=== PATIENT | female | born 1945 | race Caucasian/White ===

== ENCOUNTER 2017-10-25 23:39 | Emergency (ER) | payer OTHER ==
[2017-10-25 23:43] VITALS: BP 146/76; PULSE 99; TEMP 98.2; BMI 27.4
--- NOTE | 2017-10-26 00:43 | PDOC ---
History of Present Illness - General Chief Complaint: Chest Pain Stated Complaint: CHEST PAIN Time Seen by Provider: 10/25/17 23:50 History Source: Patient Exam Limitations: No Limitations - History of Present Illness Initial Comments: 10/26/17 00:38 CHIEF COMPLAINT: left chest pain HISTORY OF PRESENT ILLNESS: This is 72-year-old woman with past medical history of hyperlipidemia who presents emergency Department with left-sided chest pain status post trip and fall on 10/25. Patient states when she fell she landed on carpeted wooden floor striking her chest on the ground. Patient states she felt fine immediately after the injury but as time progressed she developed chest pain which worsens with deep inspiration. Patient also notes that when she palpates her rib she has increased pain. She denies any fevers, chills, shortness of breath, nausea, vomiting, diaphoresis. No recent travel or sick contacts. PAST MEDICAL HISTORY: HLD FAMILY HISTORY: Denies SURGICAL HISTORY: Denies ALLERGIES: No known drug allergies REVIEW OF SYSTEMS General/Constitutional: Denies fever or chills. Denies weakness, weight change. HEENT: Denies change in vision. Denies ear pain or discharge. Denies sore throat. Cardiovascular: Left sided chest pain. No shortness of breath. Respiratory: Denies cough, wheezing, or hemoptysis. Gastrointestinal: Denies nausea, vomiting, diarrhea or constipation. Denies rectal bleeding. Genitourinary: Denies dysuria, frequency, or change in urination. Musculoskeletal: Denies joint or muscle swelling or pain. Denies neck or back pain. Skin and breasts: Denies rash or easy bruising. Neurologic: Denies headache, vertigo, loss of consciousness, or loss of sensation. Psychiatric: Denies depression or anxiety. Endocrine: Denies increased thirst. Denies abnormal weight change. Hematologic/Lymphatic: Denies anemia, easy bleeding, or history of blood clots. Allergic/Immunologic: Denies hives or skin allergy. Denies latex allergy. PHYSICAL EXAM General Appearance: Well-appearing, appropriately dressed. No apparent distress , no intoxication. HEENT: EOMI, PERRLA, normal ENT inspection, normal voice, TMs normal, pharynx normal. No conjunctival pallor. No photophobia, scleral icterus. Neck: Supple. Trachea midline. No tenderness, rigidity, carotid bruit, stridor , lymphadenopathy, or thyromegaly. Respiratory/Chest: Lungs CTAB. No shortness of breath, respiratory distress, accessory muscle use. No crackles, rales, rhonchi, stridor, wheezing, dullness. Chest tender to Left anterior 8th rib at midclavicular line. Cardiovascular: RRR. S1, S2. No JVD, murmur, bradycardia, tachycardia. Vascular Pulses: Dorsalis-Pedis (R): 2+, Dorsalis-Pedis (L): 2+ Gastrointestinal/Abdominal: Normal bowel sounds. Abdomen soft, non-distended. No tenderness or rebound tenderness. No organomegaly, pulsatile mass, guarding , hernia, hepatomegaly, splenomegaly. Lymphatic: No adenopathy, tenderness. Musculoskeletal/Extremities: Normal inspection. FROM of all extremities, normal capillary refill. Pelvis Stable. No CVA tenderness. No tenderness to extremities, pedal edema, swelling, erythema or deformity. Integumentary: Appropriate color, dry, warm. No cyanosis, erythema, jaundice or rash Neurologic: remotely operated vehicle II-XII intact. Fully oriented, alert. Appropriate mood/affect. Motor strength 5/5. No appreciable EOM palsy, facial droop or sensory deficit. Past History - Past Medical History Allergies/Adverse Reactions: Allergies Allergy/AdvReac Type Severity Reaction Status Date / Time codeine Allergy Intermediate heart Verified 10/25/17 23:43 palpitations, hives Home Medications: Ambulatory Orders Pravastatin Sodium [Pravachol (Nf)] 20 mg PO DAILY 10/26/17 COPD: No - Surgical History Abdominal Surgery: Yes Cholecystectomy: Yes - Suicide/Smoking/Psychosocial Hx Smoking History: Never smoked Hx Alcohol Use: No Drug/Substance Use Hx: No Substance Use Type: None *Physical Exam - Vital Signs Last Vital Signs Temp Pulse Resp BP Pulse Ox 98.2 F 99 H 18 146/76 94 L 10/25/17 23:40 10/25/17 23:40 10/25/17 23:40 10/25/17 23:40 10/25/17 23:40 ED Treatment Course - LABORATORY CBC & Chemistry Diagram: 10/26/17 00:13 10/26/17 00:13 - ADDITIONAL ORDERS Additional order review: Laboratory Results 10/26/17 10/26/17 02:15 00:13 Sodium 140 Potassium 4.2 Chloride 105 Carbon Dioxide 29 Anion Gap 6 L BUN 21 H Creatinine 0.9 Creat Clearance w eGFR > 60 Random Glucose 138 H Calcium 8.7 Magnesium 1.8 Total Bilirubin 0.3 AST 22 ALT 23 Alkaline Phosphatase 134 H Creatine Kinase 70 Troponin I < 0.02 Total Protein 7.2 Albumin 3.6 Urine Color Straw Urine Appearance Clear Urine pH 6.0 Ur Specific Holcomb 1.014 Urine Protein Negative Urine Glucose (UA) Negative Urine Ketones Negative Urine Blood Negative Urine Nitrite Negative Urine Bilirubin Negative Urine Urobilinogen Negative Ur Leukocyte Esterase 2+ H Urine WBC (Auto) 14 Urine RBC (Auto) <1 Ur Epithelial Cells Rare Urine Mucus Rare 10/26/17 00:13 RBC 4.44 MCV 93.0 MCHC 34.0 RDW 13.1 MPV 10.5 Neutrophils % 67.6 Lymphocytes % 21.9 D Monocytes % 7.6 Eosinophils % 2.3 Basophils % 0.6 - RADIOLOGY Radiology Studies Ordered: Category Date Time Status CHEST PA & LAT [RAD] Stat Radiology 10/26/17 00:12 Taken Medical Decision Making - Medical Decision Making 10/26/17 00:43 A/P: 72-year-old female with history of hyperlipidemia with left sided chest pain status post trip and fall Lungs clear to auscultation bilaterally RRR. S1 and S2 present. No murmurs, rub or gallop noted. Point tenderness to left anterior eighth rib at the midclavicular line Pain worsens with deep inspiration Abdomen soft nontender nondistended PERC score-0 DDx: ACS, pericarditis, cardiac contusion, pericardial effusion, fractured rib, pulmonary contusion, costochondritis EKG, labs, urine, chest x-ray 10/26/17 02:26 EKG is interpreted by Dr. Leos and reviewed by me: Sinus rhythm with rate of 95. Normal axis. No T-wave changes noted. Chest x-rays read by me: Trachea midline. Cardiac silhouette is within normal limits. No focal consolidations or infiltrates noted visualized osseous structures are intact. Laboratory testing notable for urinalysis with 2+ leuk esterase and 14 wbc's. In absence of urinary symptoms, I will defer treatment. Troponin of less than 0.02. We'll discharge the patient home to f/u with PMD. *DC/Admit/Observation/Transfer Diagnosis at time of Disposition: Atypical chest pain - Discharge Dispostion Disposition: HOME Condition at time of disposition: Stable Decision to Admit order: No - Referrals Referrals: Erum Mckeon [Primary Care Provider] - - Patient Instructions Printed Discharge Instructions: DI for Atypical Chest Pain Additional Instructions: Any evaluation you receive in the emergency department is incomplete. Make an appointment with your primary doctor for continued evaluation. Return to emergency department for chest pain, shortness of breath, nausea, vomiting, sweating, dizziness or any other concerns. Thank you very much for choosing us to provide your emergent health care needs. - Post Discharge Activity Forms/Work/School Notes: Back to Work
[2017-10-26 00:53] LABS: BASO % 0.6 % (0-2.0); EOS % 2.3 % (0-4.5); HEMATOCRIT 41.3 % (32.4-45.2); HEMOGLOBIN 14.1 GM/dL (10.7-15.3); LYMPH % 21.9 % (8-40); MCH 31.6 pg (25.7-33.7); MEAN PLT VOLUME 10.5 fl (7.5-11.1); MONO % 7.6 % (3.8-10.2); NEUT % 67.6 % (42.8-82.8); PLATELET COUNT 206 K/MM3 (134-434); RBC 4.44 M/mm3 (3.60-5.2); RDW 13.1 % (11.6-15.6); WHITE BLOOD COUNT 9.2 K/mm3 (4.0-10.0)
[2017-10-26 01:00] LABS: ALBUMIN 3.6 g/dl (3.4-5.0); ANION GAP 6 (8-16); BILIRUBIN,TOTAL 0.3 mg/dL (0.2-1.0); BLOOD UREA NITROGEN 21 mg/dL (7-18); CALCIUM 8.7 mg/dL (8.5-10.1); CHLORIDE 105 mmol/L (98-107); CO2 29 mmol/L (21-32); CREATININE 0.9 mg/dL (0.55-1.02); GLUCOSE,RANDOM 138 mg/dL (74-106); MAGNESIUM 1.8 mg/dL (1.8-2.4); POTASSIUM 4.2 mmol/L (3.5-5.1); SGOT/AST 22 U/L (15-37); SGPT/ALT 23 U/L (12-78); SODIUM 140 mmol/L (136-145); TOT PROT 7.2 g/dl (6.4-8.2)
[2017-10-26 01:02] LABS: ALK PHOS 134 U/L (45-117)
--- NOTE | 2017-10-26 01:59 | PDOC ---
*Physical Exam - Vital Signs Last Vital Signs Temp Pulse Resp BP Pulse Ox 98.2 F 99 H 18 146/76 94 L 10/25/17 23:40 10/25/17 23:40 10/25/17 23:40 10/25/17 23:40 10/25/17 23:40 ED Treatment Course - LABORATORY CBC & Chemistry Diagram: 10/26/17 00:13 10/26/17 00:13 - ADDITIONAL ORDERS Additional order review: Laboratory Results 10/26/17 00:13 Sodium 140 Potassium 4.2 Chloride 105 Carbon Dioxide 29 Anion Gap 6 L BUN 21 H Creatinine 0.9 Creat Clearance w eGFR > 60 Random Glucose 138 H Calcium 8.7 Magnesium 1.8 Total Bilirubin 0.3 AST 22 ALT 23 Alkaline Phosphatase 134 H Creatine Kinase 70 Troponin I < 0.02 Total Protein 7.2 Albumin 3.6 10/26/17 00:13 RBC 4.44 MCV 93.0 MCHC 34.0 RDW 13.1 MPV 10.5 Neutrophils % 67.6 Lymphocytes % 21.9 D Monocytes % 7.6 Eosinophils % 2.3 Basophils % 0.6 Medical Decision Making - Medical Decision Making 10/26/17 01:59 agree with care from MIKI Guzman *DC/Admit/Observation/Transfer Diagnosis at time of Disposition: Atypical chest pain - Discharge Dispostion Disposition: HOME Condition at time of disposition: Stable - Prescriptions Prescriptions: Spirometers and Accessories [Mistassist] 1 each MC Q1H #1 each - Referrals Referrals: Erum Mckeon [Primary Care Provider] - - Patient Instructions Printed Discharge Instructions: DI for Atypical Chest Pain Additional Instructions: Any evaluation you receive in the emergency department is incomplete. Make an appointment with your primary doctor for continued evaluation. Return to emergency department for chest pain, shortness of breath, nausea, vomiting, sweating, dizziness or any other concerns. Thank you very much for choosing us to provide your emergent health care needs. - Post Discharge Activity Forms/Work/School Notes: Back to Work
[2017-10-26 02:18] LABS: URINE APPEARANCE CLEAR; URINE BILIRUBIN NEGATIVE (<2.0 mg/dL); URINE COLOR STRAW; URINE GLUCOSE (UA) NEGATIVE (NEGATIVE); URINE KETONE NEGATIVE (NEGATIVE); URINE NITRITE NEGATIVE (NEGATIVE); URINE PROTEIN NEGATIVE (NEGATIVE); URINE UROBILINOGEN NEGATIVE mg/dL (0.2-1.0)
[2017-10-26 02:20] LABS: URINE LEUK ESTERASE 2+ (NEGATIVE)
[2017-10-26 02:21] LABS: EPI CELLS RARE /HPF (FEW); URINE MUCUS RARE
[2017-10-26] MEDS ORDERED: KETOROLAC TROMETHAMINE 30 MG/1 ML VIAL IVPUSH ONE (02:26)
[2017-10-26] MEDS ORDERED: KETOROLAC TROMETHAMINE 30 MG/1 ML VIAL ONE (02:29)
--- NOTE | 2017-10-26 09:14 | PDOC ---
Patient Follow-up (Call Back) - Post ED Follow - Up Condition at time of discharge: Stable Disposition at time of original discharge: HOME Reason for Call Back: Radiology (Phone call recieved from Dr. Tomlin regarding increased intersitial markings in the L side. I suspect this is d.t the trauma of falling and pain with inspiraiton. Pt. made aware of results. Sent inscentinve spirometer to pt pharmacy and told her to f/u with her PCP for repeat CXR.)
--- NOTE | 2017-10-26 14:29 | EKG ---
Test Reason : Blood Pressure : / mmHG Vent. Rate : 095 BPM Atrial Rate : 095 BPM P-R Int : 174 ms QRS Dur : 086 ms QT Int : 358 ms P-R-T Axes : 023 026 029 degrees QTc Int : 449 ms POOR DATA QUALITY, INTERPRETATION MAY BE ADVERSELY AFFECTED NORMAL SINUS RHYTHM NORMAL ECG WHEN COMPARED WITH ECG OF 12-AUG-2013 17:39, VENT. RATE HAS INCREASED BY 33 BPM NONSPECIFIC T WAVE ABNORMALITY NOW EVIDENT IN INFERIOR LEADS T WAVE AMPLITUDE HAS DECREASED IN LATERAL LEADS Confirmed by NORA HEADLEY MD ([id number]) on 10/26/2017 2:29:10 PM Referred By: Confirmed By:NORA HEADLEY MD
== END 2017-10-26 02:38 | disposition home or self-care (01) ==
LOC: JER 23:39
PROC: 3E0333Z Introduction of Anti-inflammatory into Peripheral Vein, Percutaneous Approach (ICD-10-PCS; principal; 2017-10-25)
DX: R07.89 Other chest pain (principal); W18.39XA Other fall on same level, initial encounter; Y93.01 Activity, walking, marching and hiking; Y92.018 Other place in single-family (private) house as the place of occurrence of the external cause; Y99.8 Other external cause status; E78.5 Hyperlipidemia, unspecified; Z88.8 Allergy status to other drugs, medicaments and biological substances
CPT/HCPCS: 36415; 71046-TC-FY; 80053; 81003; 81015; 82550; 83735; 84484; 85025; 93005; 93010; 99282-25

== ENCOUNTER 2018-01-15 07:34 | Inpatient (IN) | payer OTHER ==
--- NOTE | 2018-01-15 07:51 | PDOC ---
History of Present Illness - General Stated Complaint: FALL Time Seen by Provider: 01/15/18 07:50 - History of Present Illness Initial Comments: 72yo with previous R. knee surgery presenting after fall. Patient reports she was walking down the stairs around 6:30am when she missed the last step and fell on her left hip. She remembers the entire episode and denies loss of consciousness, nausea, or vomiting. Patient did not hit her head and denies neck tenderness or dental injury. She reports 8/10 pain in her hip when she is still and 10/10 pain when she moves. She has not been able to ambulate or bear any weight on her left leg since the fall. No fever, chills, chest pain, or shortness of breath. Past History - Past Medical History Allergies/Adverse Reactions: Allergies Allergy/AdvReac Type Severity Reaction Status Date / Time codeine Allergy Intermediate heart Verified 10/25/17 23:43 palpitations, hives Home Medications: Ambulatory Orders Pravastatin Sodium [Pravachol (Nf)] 20 mg PO DAILY 10/26/17 COPD: No - Surgical History Abdominal Surgery: Yes Cholecystectomy: Yes - Suicide/Smoking/Psychosocial Hx Smoking History: Never smoked Hx Alcohol Use: No Drug/Substance Use Hx: No Substance Use Type: None Review of Systems - Review of Systems Comments:: Constitutional: no fever, no chills HEENT: no throat pain, no dysphagia Cardiovascular: no chest pain, no palpitations Respiratory: no cough, no shortness of breath Gastrointestinal: no abdominal pain, no nausea, no vomiting Genitourinary: no dysuria, no frequency Musculoskeletal: no myalgia, +L. hip pain Skin: no rash, no itching Neurologic: no headache, no LOC *Physical Exam - Physical Exam Comments: General: Awake, alert, and fully oriented Head: no signs of trauma Eyes: EOMI ENT: Moist mucus membranes Neck: Normal ROM, supple, no midline tenderness Lungs: Lungs clear, Normal breath sounds Cardio: Regular rhythm, S1 and S2 present Abdomen: Soft, nontender. No guarding, no rebound, no masses Extremities: L. leg is internally rotated and shortened, no overlying wound or lesion; 2+ Distal pulses present in all four extremities SKIN: Warm, Dry, normal turgor Neurologic: Cranial nerves II through XII grossly intact. Normal speech ED Treatment Course - LABORATORY CBC & Chemistry Diagram: 01/15/18 08:20 01/15/18 08:20 Medical Decision Making - Medical Decision Making 72yo with previous R. knee surgery presenting after fall. -Imaging: Intertrochanteric fracture with avulsion of the lesser trochanter -Pre-surgical workup -4mg morphine -Dr. Zheng discussed case with Dr. Herring who accepted patient for admission -Discussed case with Dr. Castaneda, orthopedics 01/15/18 10:53 *DC/Admit/Observation/Transfer Diagnosis at time of Disposition: Hip fracture Qualifiers: Encounter type: initial encounter Fracture type: closed Laterality: left Qualified Code(s): S72.002A - Fracture of unspecified part of neck of left femur , initial encounter for closed fracture - Discharge Dispostion Condition at time of disposition: Guarded Decision to Admit order: Yes - Referrals Referrals: Erum Mckeon [Primary Care Provider] - - Patient Instructions - Post Discharge Activity
[2018-01-15] MEDS ORDERED: morphine CARPU-JECT 4 MG/1 ML DISP.SYRIN IVPUSH ONE ×2 (08:08→11:32)
[2018-01-15] MEDS ORDERED: morphine SULFATE 4 MG/ML VIAL ONE ×2 (08:23→11:46)
[2018-01-15 08:42] LABS: BASO % 0.4 % (0-2.0); EOS % 0.7 % (0-4.5); HEMATOCRIT 41.6 % (32.4-45.2); HEMOGLOBIN 13.8 GM/dL (10.7-15.3); LYMPH % 14.4 % (8-40); MCH 30.8 pg (25.7-33.7); MCHC 33.3 g/dl (32.0-36.0); MEAN CELL VOLUME 92.6 fl (80-96); MONO % 6.7 % (3.8-10.2); NEUT % 77.8 % (42.8-82.8); PLATELET COUNT 237 K/MM3 (134-434); RBC 4.49 M/mm3 (3.60-5.2); RDW 13.1 % (11.6-15.6); WHITE BLOOD COUNT 10.3 K/mm3 (4.0-10.0)
[2018-01-15 08:57] LABS: PROTHROMBIN TIME (PATIENT) 11.8 SEC (9.7-13.0)
--- NOTE | 2018-01-15 09:02 | PDOC ---
Attending Attestation - Resident Resident Name: Carlee Lugo - ED Attending Attestation I have performed the following: I have examined & evaluated the patient, The case was reviewed & discussed with the resident, I agree w/resident's findings & plan, Exceptions are as noted - HPI HPI: 01/15/18 08:56 72 yo F with no pmhx here with c/o fall, now left hip pain. missed left step, fell down, denies head trauma no loc. c/o left hip pain. severe. worse with movement. unable to walk since incident. happened at 6 : 30 am. no other comlaints of knee or ankle pain. h/o prior knee surgery on right at [facility] many years ago. - Physicial Exam PE: 01/15/18 09:02 head atrauma awake alert lungs clear bilaterally heart rrr no mrg abd soft nt nd. ext wwp. left hip ttp. decr rom secondary to pain. knee nt. ankle foot/ nt . 2 + dp/ pt bilaterally. left lower ext shortened ext rotated. GCS 15. nuero alert oriented x 3. - Medical Decision Making 01/15/18 09:08 differential hip fracture/ dislocation. plan labs xray ekg sonam admit 01/15/18 10:40 pt with intertrochanteric fracture, with avulsion lesser trochanter. pcp does not admit here. will d/w dr romero, consult [place] . pain controlled with morphine. Heart Score/ECG Review #1 General ECG Interpretation: Sinus Rhythm, Normal Rate, Normal Intervals, No acute ischemic changes (TWI III, flat AVF)
[2018-01-15 09:26] LABS: ALBUMIN 3.5 g/dl (3.4-5.0); ALK PHOS 122 U/L (45-117); ANION GAP 5 MMOL/L (8-16); BILIRUBIN,TOTAL 0.5 mg/dL (0.2-1); BLOOD UREA NITROGEN 22 mg/dL (7-18); CALCIUM 8.9 mg/dL (8.5-10.1); CHLORIDE 108 mmol/L (98-107); CO2 29 mmol/L (21-32); CREATININE 0.7 mg/dL (0.55-1.3); GLUCOSE,RANDOM 120 mg/dL (74-106); POTASSIUM 3.7 mmol/L (3.5-5.1); SGOT/AST 17 U/L (15-37); SGPT/ALT 18 U/L (13-61); SODIUM 143 mmol/L (136-145)
--- NOTE | 2018-01-15 10:14 | EKG ---
Test Reason : Blood Pressure : / mmHG Vent. Rate : 069 BPM Atrial Rate : 069 BPM P-R Int : 184 ms QRS Dur : 094 ms QT Int : 430 ms P-R-T Axes : 032 006 002 degrees QTc Int : 460 ms NORMAL SINUS RHYTHM NORMAL ECG WHEN COMPARED WITH ECG OF 25-OCT-2017 23:55, VENT. RATE HAS DECREASED Confirmed by ASHOK LEMUS MD ([id number]) on 01/15/2018 10:14:34 AM Referred By: Confirmed By:ASHOK LEMUS MD
--- NOTE | 2018-01-15 12:34 | CON.CARD ---
Consult Consult Specialty:: Cardiology Referred by:: Jadiel Herring MD Reason for Consultation:: Pre-operative cardiovascular evaluation - History of Present Illness Chief Complaint: s/p fall, left hip pain History of Present Illness: 72 yo with h/o hyperlipidemia Rt TKR 2016 at [facility] with unremarkable pre- procedure CV testing at that time presented after mechanical fall. Patient reports she was walking down the stairs around 6:30am when she missed the last step and fell on her left hip. She remembers the entire episode and denies loss of consciousness, near syncope, chest pain, dyspnea, palpitations, head trauma, neck tenderness or dental injury. She reports 8/10 pain in her hip when she is still and 10/10 pain when she moves. She has not been able to ambulate or bear any weight on her left leg since the fall. She denies exertional sxs, orthopnea , PND, LE edema or change in exercise capacity. - History Source History Provided By: Patient Limitations to Obtaining History: No Limitations - Alcohol/Substance Use Hx Alcohol Use: No - Smoking History Smoking history: Never smoked Home Medications - Allergies Allergies/Adverse Reactions: Allergies Allergy/AdvReac Type Severity Reaction Status Date / Time codeine Allergy Intermediate heart Verified 10/25/17 23:43 palpitations, hives - Home Medications Home Medications: Ambulatory Orders Pravastatin Sodium [Pravachol (Nf)] 20 mg PO DAILY 10/26/17 Family Disease History - Family Disease History Family Disease History: Heart Disease: Father (in 70s), Mother (in 70s) Review of Systems - Review of Systems Constitutional: reports: No Symptoms Eyes: reports: No Symptoms HENT: reports: No Symptoms Neck: reports: No Symptoms Cardiovascular: reports: No Symptoms Respiratory: reports: No Symptoms Gastrointestinal: reports: No Symptoms Genitourinary: reports: No Symptoms Musculoskeletal: reports: Decreased ROM, Extremity Pain, Joint Pain Integumentary: reports: No Symptoms Neurological: reports: No Symptoms Endocrine: reports: No Symptoms Vital Signs: Vital Signs Temperature 98.3 F 01/15/18 12:12 Pulse Rate 74 01/15/18 12:12 Respiratory Rate 18 01/15/18 12:12 Blood Pressure 99/51 L 01/15/18 12:12 O2 Sat by Pulse Oximetry (%) 94 L 01/15/18 12:12 Constitutional: Yes: No Distress, Calm, Thin Neck: Yes: Supple Respiratory: Yes: Regular, CTA Bilaterally Gastrointestinal: Yes: Normal Bowel Sounds, Soft Cardiovascular: Yes: Regular Rate and Rhythm JVD: No Carotid Bruit: No Heart Sounds: Yes: S1, S2 Extremities: Yes: External Rotation, Shortened Edema: No - Other Data Labs, Other Data: CBC, BMP 01/15/18 08:20 01/15/18 08:20 INR, PTT INR 1.00 (0.83-1.09) 01/15/18 08:20 NSR @ [address]-T changes Imaging - Results Chest X-ray: Report Reviewed (NAD) X-ray: Report Reviewed (Left hip acute IT fracture with avulsion of lesser trochanter) Problem List - Problems (1) Hyperlipidemia Code(s): E78.5 - HYPERLIPIDEMIA, UNSPECIFIED Qualifiers: Hyperlipidemia type: pure hypercholesterolemia Qualified Code(s): E78.00 - Pure hypercholesterolemia, unspecified; E78.0 - Pure hypercholesterolemia (2) Pre-operative cardiovascular examination Code(s): Z01.810 - ENCOUNTER FOR PREPROCEDURAL CARDIOVASCULAR EXAMINATION (3) Hip fracture Code(s): S72.009A - FRACTURE OF UNSP PART OF NECK OF UNSP FEMUR, INIT Qualifiers: Encounter type: initial encounter Fracture type: closed Laterality: left Qualified Code(s): S72.002A - Fracture of unspecified part of neck of left femur, initial encounter for closed fracture Assessment/Plan 1. Pre-operative cardiovascular evaluation 2. Left Intertrochanteric fracture with avulsion of the lesser trochanter plan for ORIF 3. Hyperlipidemia 4. H/o right TKR with negative pre-op CV testing 2015 P:1. Given absence of symptoms of acute coronary syndrome, decompensated CHF or malignant arrhythmia and h/o unremarkable pre-op CV testing 2 years ago, may proceed with orthopedic surgery from CV-standpoint without further testing 2. Analgesia as needed, DVT prophylaxis 3. Thank you for consultative opportunity
[2018-01-15 12:40] VITALS: BMI 26.7
[2018-01-15] MEDS ORDERED: BUPIVACAINE HCL/PF 0.5% (5MG/ML) 10 ML VIAL ONE (13:34)
[2018-01-15] MEDS ORDERED: PROPOFOL 20 ML ONE (13:36)
[2018-01-15] MEDS ORDERED: MIDAZOLAM HCL 2 MG/2 ML SINGLE DOSE VIAL ONE (13:36)
[2018-01-15] MEDS ORDERED: SUCCINYLCHOLINE CHLORIDE 200 MG/10 ML VIAL ONE (13:37)
[2018-01-15] MEDS ORDERED: ROCURONIUM BROMIDE 50 MG/5 ML VIAL ONE (13:37)
[2018-01-15] MEDS ORDERED: ceFAZolin SODIUM 1 GM VIAL IVPB ONE (14:13)
[2018-01-15] MEDS ORDERED: FLU VACCINE QUAD 60 MCG/0.5 ML (MDV 18-19) IM ONE (15:30)
[2018-01-15] MEDS ORDERED: ONDANSETRON 4 MG/2 ML VIAL IVPUSH PRN (15:39)
--- NOTE | 2018-01-15 16:42 | CONS ---
DATE OF CONSULTATION: 01/15/2018 CHIEF COMPLAINT: Left hip pain. HISTORY OF PRESENT ILLNESS: This is a pleasant 80-year-old female who was walking down the stairs when she missed the stair, causing her to fall. She landed on the left side. She was unable to ambulate afterwards and complained of left hip pain. She was brought up by EMS to [facility] ER. Evaluation here demonstrated an intratrochanteric hip fracture. Orthopedic consultation was called. Patient denies any pain elsewhere. She denies any radiating pain, numbness, or tingling. PAST MEDICAL HISTORY: Significant for elevated cholesterol. MEDICATION: Reviewed as in chart. PAST SURGICAL HISTORY: Includes knee replacement. ALLERGIES: CODEINE. REVIEW OF SYSTEMS: Negative for any fever, chills, nausea, vomiting, or night sweats. No dysuria, no urinary frequency, no rashes, no discoloration of the skin, no easy bruising. PHYSICAL EXAMINATION: GENERAL: This is a well appearing female in no acute distress. She is alert and oriented x3. She is seen lying on the hospital stretcher. VITAL SIGNS: She is afebrile, and her vital signs are stable. EXTREMITIES: Examination of the left lower extremity demonstrates it is externally rotated. There is pain with any motion of the hip. The knee is not tender. The ankle is not tender. examination is intact. Radiographs reviewed. There is displaced intratrochanteric hip fracture on the left. ASSESSMENT: Left intratrochanteric hip fracture. PLAN: I discussed today's findings with the patient as well as her . I advised that there is an intratrochanteric hip fracture present. I reviewed what this fracture is. We discussed the option of nonoperative care, which was not recommended and involves prolonged bedrest and limited ability to walk along with malunion. I discussed the options of operative care involving intramedullary nail placement. I reviewed the procedure in detail. We discussed the hardware being used. I reviewed surgical risks in detail including bleeding, infection, neurovascular injury, need for further surgery, postoperative pain and stiffness, nonunion, malunion, hardware failure or cutout. We reviewed the risks of medical complications such as heart attack, stroke, DVT, PE, or . I addressed all the patient's questions and concerns. She voiced understanding and has elected to proceed. The patient may be brought to the operating room today for intramedullary fixation. TATUM FAITH M.D. ASHLY/[id number]
[2018-01-15] MEDS ORDERED: ACETAMINOPHEN 325 MG TABLET (FP) PO PRN ×2 (17:15→17:20)
--- NOTE | 2018-01-15 17:15 | OP ---
Operative Note - Note: Operative Date: 01/15/18 Pre-Operative Diagnosis: left IT fracture Operation: left hip intramedullary nail Implants: ICVRx gamma 3 125 short nail. 100mm proximal lag screw. 37.5mm distal locking screw Post-Operative Diagnosis: Same as Pre-op Surgeon: Jitendra Castaneda Anesthesia: General Estimated Blood Loss (mls): 100 Operative Report Dictated: Yes
[2018-01-15] MEDS ORDERED: oxyCODONE HCL 5 MG TABLET PO PRN (17:22)
--- NOTE | 2018-01-15 17:35 | HP ---
Admitting History and Physical - Primary Care Physician PCP: Jadiel Herring - Admission History of Present Illness: 72yo with previous R. knee surgery presenting after fall. Patient reports she was walking down the stairs around 6:30am when she missed the last step and fell on her left hip. She remembers the entire episode and denies loss of consciousness, nausea, or vomiting. Patient did not hit her head and denies neck tenderness or dental injury. She reports 8/10 pain in her hip when she is still and 10/10 pain when she moves. She has not been able to ambulate or bear any weight on her left leg since the fall. No fever, chills, chest pain, or shortness of breath. - Past Medical History ...: No - Smoking History Smoking history: Never smoked - Alcohol/Substance Use Hx Alcohol Use: No Home Medications - Allergies Allergies/Adverse Reactions: Allergies Allergy/AdvReac Type Severity Reaction Status Date / Time codeine Allergy Intermediate heart Verified 10/25/17 23:43 palpitations, hives - Home Medications Home Medications: Ambulatory Orders Pravastatin Sodium [Pravachol (Nf)] 20 mg PO DAILY 10/26/17 Family Disease History - Family Disease History Family Disease History: Heart Disease: Father (in 70s), Mother (in 70s) Physical Examination Vital Signs: Vital Signs Temperature 97.8 F 01/15/18 16:54 Pulse Rate 72 01/15/18 16:54 Respiratory Rate 12 01/15/18 16:54 Blood Pressure 112/60 01/15/18 16:54 O2 Sat by Pulse Oximetry (%) 99 01/15/18 16:54 Constitutional: Yes: No Distress HENT: Yes: Atraumatic Neck: Yes: Supple Cardiovascular: Yes: Regular Rate and Rhythm Respiratory: Yes: CTA Bilaterally Gastrointestinal: Yes: Normal Bowel Sounds Edema: No Edema: RLE: Trace Neurological: Yes: Alert, Oriented Labs: CBC, BMP 01/15/18 08:20 01/15/18 08:20 Problem List - Problems (1) Hip fracture Assessment/Plan: left hip fracture for surgery prn pain meds dvt ppx Code(s): S72.009A - FRACTURE OF UNSP PART OF NECK OF UNSP FEMUR, INIT Qualifiers: Encounter type: initial encounter Fracture type: closed Laterality: left Qualified Code(s): S72.002A - Fracture of unspecified part of neck of left femur, initial encounter for closed fracture (2) Hyperlipidemia Code(s): E78.5 - HYPERLIPIDEMIA, UNSPECIFIED Qualifiers: Hyperlipidemia type: pure hypercholesterolemia Qualified Code(s): E78.00 - Pure hypercholesterolemia, unspecified; E78.0 - Pure hypercholesterolemia Assessment/Plan Laboratory Tests 01/15/18 01/15/18 01/15/18 08:20 08:20 08:20 WBC 10.3 H RBC 4.49 Hgb 13.8 Hct 41.6 MCV 92.6 MCH 30.8 MCHC 33.3 RDW 13.1 Plt Count 237 MPV 10.0 Absolute Neuts (auto) 8.0 Neutrophils % 77.8 Lymphocytes % 14.4 D Monocytes % 6.7 Eosinophils % 0.7 Basophils % 0.4 Nucleated RBC % 0 PT with INR 11.80 INR 1.00 Sodium 143 Potassium 3.7 Chloride 108 H Carbon Dioxide 29 Anion Gap 5 L BUN 22 H Creatinine 0.7 Creat Clearance w eGFR > 60 Random Glucose 120 H Calcium 8.9 Total Bilirubin 0.5 AST 17 ALT 18 Alkaline Phosphatase 122 H Total Protein 7.0 Albumin 3.5 Blood Type Antibody Screen 01/15/18 01/15/18 08:20 12:45 WBC RBC Hgb Hct MCV MCH MCHC RDW Plt Count MPV Absolute Neuts (auto) Neutrophils % Lymphocytes % Monocytes % Eosinophils % Basophils % Nucleated RBC % PT with INR INR Sodium Potassium Chloride Carbon Dioxide Anion Gap BUN Creatinine Creat Clearance w eGFR Random Glucose Calcium Total Bilirubin AST ALT Alkaline Phosphatase Total Protein Albumin Blood Type A POSITIVE A POSITIVE Antibody Screen Negative Active Medications Generic Name Dose Route Start Last Admin Trade Name Freq PRN Reason Stop Dose Admin Acetaminophen 325 mg 01/15/18 17:20 Tylenol - PO Q6H PRN PAIN 1-5 Acetaminophen 650 mg 01/15/18 17:22 Tylenol - PO Q6H PRN PAIN 6-10 Calcium Carbonate/Cholecalciferol 1 tab 01/15/18 22:00 Os-Víctor 500+D - PO BID SHEELA Docusate Sodium 100 mg 01/15/18 22:00 Colace - PO TID SHEELA Enoxaparin Sodium 40 mg 01/16/18 10:00 Lovenox - SQ DAILY SHEELA Fentanyl 25 mcg 01/15/18 15:39 Sublimaze Injection - IVPUSH [id number] PRN PAIN-PACU ORDER X 4 DOSES ONLY Lactated Ringer's 1,000 mls @ 125 mls/hr 01/15/18 15:45 Lactated Ringers Solution IV ASDIR SHEELA Cefazolin Sodium 1 gm/ 50 mls @ 100 mls/hr 01/15/18 18:00 Dextrose IVPB 01/16/18 10:29 Q8H-IV SHEELA Ondansetron HCl 4 mg 01/15/18 15:39 Zofran Injection IVPUSH Q6H PRN NAUSEA AND/OR VOMITING Oxycodone HCl 5 mg 01/15/18 17:20 Roxicodone - PO Q6H PRN PAIN 1-5 Oxycodone HCl 10 mg 01/15/18 17:22 Roxicodone - PO Q6H PRN PAIN 6-10
[2018-01-15] MEDS ORDERED: ceFAZolin SODIUM 1 GM VIAL ONE (18:09)
[2018-01-15] MEDS ORDERED: DEXTROSE 5%-WATER - 50 ML IVPB ONE (18:10)
--- NOTE | 2018-01-15 18:20 | HP ---
DATE OF ADMISSION: 01/15/2018 PREOPERATIVE DIAGNOSIS: Left intertrochanteric hip fracture. POSTOPERATIVE DIAGNOSIS: Left intertrochanteric hip fracture. PROCEDURE: Left hip intramedullary nail. SURGEON: Jitendra Castaneda MD ANESTHESIA: General. POSTOPERATIVE CONDITION: Stable. COMPLICATIONS: None. IMPLANTS: Rik Gamma 3 short nail 125-degree 100-mm proximal lag screw and 37.5-mm distal locking screw. INDICATIONS: This is a 72-year-old female who suffered a fall down the stairs. She was found to have an intertrochanteric hip fracture. Treatment options including nonoperative versus operative management were reviewed. Operative management was strongly suggested. Operative risks were reviewed including bleeding, infection, neurovascular injury, need for further surgery, postoperative pain and stiffness, nonunion, malunion, hardware failure or cutout. We discussed medical risks such as heart attack, stroke, DVT, PE, and . I addressed all of the patient's questions and concerns. She voiced understanding and elected to proceed. Her was present for this discussion as well. DESCRIPTION OF PROCEDURE: The patient was brought to the operating room where general anesthesia was administered. She was then placed onto the fracture table careful to pad all of the bony prominences. The left lower extremity was then placed into position of traction, adduction, and internal rotation. Preoperative fluoroscopy was used to confirm satisfactory reduction. The patient was then prepped and draped in the usual sterile fashion. A preoperative dose of antibiotics was given, and the usual time-out procedure was performed. The incision was now planned out just proximal to the greater trochanter. This was made through the skin and subcutaneous tissue. A guidewire was then placed onto the tip of the greater trochanter. It was then manually advanced into the femoral canal. Guidewire placement was confirmed fluoroscopically in 2 planes. The guidewire was now over reamed taking care to protect the soft tissues to gain entry into the femoral canal. The opening reamer was then removed along with a guidewire. The nail was now inserted into the femoral canal. Nail placement was confirmed fluoroscopically. Utilizing the jig, an incision was planned out and then made to allow insertion of the trocar. The trocar was then inserted into the jig and down to the level of the lateral femoral cortex. A guidewire was now inserted down the center of the femoral neck into the center of the femoral head. Guidewire placement was confirmed fluoroscopically in 2 planes. The guidewire was then measured, and a 100-mm screw was chosen. This was then overreamed to a depth of 98 mm. The screw was then inserted. Screw placement was confirmed fluoroscopically in 2 planes. The set screw was now inserted and then backed off 1/4 turn to allow for compression. The proximal trocar was then removed. The distal trocar was now inserted through a separate incision. The distal screw was then drilled, measured, and inserted with 37.5-mm screw. At this point, the entire construct was examined fluoroscopically. Both fracture reduction and hardware placement were satisfactory. The wounds were copiously irrigated. The deep subcutaneous tissue was approximated using 2-0 Vicryl. The skin was closed using 3-0 nylon. Sterile dressings were placed. The patient was extubated and transferred to the recovery room in stable condition. Suleman PEDRO/[id number]
[2018-01-15] MEDS: CEFAZOLIN 1 GM in DEXTROSE 5%-WATER - 50 ML IVPB SCH (18:29)
[2018-01-15] MEDS: LACTATED RINGERS SOLUTION 1,000 ML IV SCH (18:29)
[2018-01-15] MEDS: DOCUSATE SODIUM 100 MG CAPSULE (FP) PO SCH (21:30)
[2018-01-15] MEDS: CALCIUM 500MG/VIT-D 200 UNITS COMBO TABLET (FP) PO SCH (21:30)
[2018-01-16 00:27] LABS: URINE APPEARANCE CLEAR; URINE BILIRUBIN NEGATIVE (<2.0 mg/dL); URINE COLOR YELLOW; URINE GLUCOSE (UA) NEGATIVE (NEGATIVE); URINE KETONE TRACE (NEGATIVE); URINE LEUK ESTERASE 1+ (NEGATIVE); URINE NITRITE NEGATIVE (NEGATIVE); URINE PROTEIN 1+ (NEGATIVE); URINE UROBILINOGEN NEGATIVE mg/dL (0.2-1.0)
[2018-01-16 00:38] LABS: EPI CELLS FEW /HPF (FEW); URINE BACTERIA RARE /hpf (NONE SEEN)
[2018-01-16] MEDS ORDERED: ceFAZolin SODIUM 1 GM VIAL ONE ×2 (01:34→09:46)
[2018-01-16] MEDS ORDERED: DEXTROSE 5%-WATER - 50 ML IVPB ONE ×2 (01:34→09:46)
[2018-01-16] MEDS: LACTATED RINGERS SOLUTION 1,000 ML IV SCH ×2 (01:36→18:26)
[2018-01-16] MEDS: CEFAZOLIN 1 GM in DEXTROSE 5%-WATER - 50 ML IVPB SCH ×2 (01:36→09:47)
[2018-01-16] MEDS: oxyCODONE HCL 5 MG TABLET PO PRN ×3 (03:40→18:19)
[2018-01-16] MEDS: DOCUSATE SODIUM 100 MG CAPSULE (FP) PO SCH ×3 (05:38→22:19)
[2018-01-16 07:04] LABS: BASO % 0.1 % (0-2.0); HEMATOCRIT 32.4 % (32.4-45.2); HEMOGLOBIN 11.1 GM/dL (10.7-15.3); LYMPH % 9.6 % (8-40); MCH 31.4 pg (25.7-33.7); MCHC 34.3 g/dl (32.0-36.0); MEAN CELL VOLUME 91.5 fl (80-96); MONO % 6.7 % (3.8-10.2); NEUT % 83.6 % (42.8-82.8); PLATELET COUNT 179 K/MM3 (134-434); RBC 3.54 M/mm3 (3.60-5.2); RDW 13.1 % (11.6-15.6)
[2018-01-16 07:46] LABS: ALBUMIN 2.6 g/dl (3.4-5.0); ALK PHOS 98 U/L (45-117); ANION GAP 7 MMOL/L (8-16); BILIRUBIN,TOTAL 0.7 mg/dL (0.2-1); BLOOD UREA NITROGEN 22 mg/dL (7-18); CALCIUM 8.2 mg/dL (8.5-10.1); CHLORIDE 107 mmol/L (98-107); CO2 26 mmol/L (21-32); CREATININE 0.6 mg/dL (0.55-1.3); GLUCOSE,RANDOM 117 mg/dL (74-106); SGOT/AST 30 U/L (15-37); SGPT/ALT 25 U/L (13-61); SODIUM 140 mmol/L (136-145); TOT PROT 5.6 g/dl (6.4-8.2)
[2018-01-16] MEDS: ENOXAPARIN NA (PORCINE) 40 MG/0.4 ML DISP.SYRIN SQ SCH (09:47)
[2018-01-16] MEDS: CALCIUM 500MG/VIT-D 200 UNITS COMBO TABLET (FP) PO SCH ×2 (09:47→22:19)
--- NOTE | 2018-01-16 10:35 | PN ---
Progress Note (short form) - Note Progress Note: Anesthesia postop note 72 y/o F s/p GA for left hip ORIF POD#1, vss, aaox3, pain well controlled No anesthesia complications.
--- NOTE | 2018-01-16 12:45 | PN ---
Progress Note, Physician Chief Complaint: Events noted Not in distress History of Present Illness: Patient was seen and examined. Awake and alert. Chart was reviewed Denies chest pain, SOB or palpitations Sitting in chair POD #1 - Current Medication List Current Medications: Active Medications Acetaminophen (Tylenol -) 325 mg PO Q6H PRN PRN Reason: PAIN 1-5 Last Admin: 01/16/18 03:40 Dose: 325 mg Acetaminophen (Tylenol -) 650 mg PO Q6H PRN PRN Reason: PAIN 6-10 Calcium Carbonate/Cholecalciferol (Os-Víctor 500+D -) 1 tab PO BID [facility] Last Admin: 01/16/18 09:47 Dose: 1 tab Docusate Sodium (Colace -) 100 mg PO TID [facility] Last Admin: 01/16/18 05:38 Dose: 100 mg Enoxaparin Sodium (Lovenox -) 40 mg SQ DAILY [facility] Last Admin: 01/16/18 09:47 Dose: 40 mg Fentanyl (Sublimaze Injection -) 25 mcg IVPUSH [id number] PRN PRN Reason: PAIN-PACU ORDER X 4 DOSES ONLY Lactated Ringer's (Lactated Ringers Solution) 1,000 mls @ 125 mls/hr IV ASDIR [facility] Last Admin: 01/16/18 01:36 Dose: 125 mls/hr Ondansetron HCl (Zofran Injection) 4 mg IVPUSH Q6H PRN PRN Reason: NAUSEA AND/OR VOMITING Last Admin: 01/16/18 10:49 Dose: 4 mg Oxycodone HCl (Roxicodone -) 5 mg PO Q6H PRN PRN Reason: PAIN 1-5 Last Admin: 01/16/18 09:47 Dose: 5 mg Oxycodone HCl (Roxicodone -) 10 mg PO Q6H PRN PRN Reason: PAIN 6-10 - Objective Vital Signs: Vital Signs Temperature 98.5 F 01/16/18 10:00 Pulse Rate 90 01/16/18 10:00 Respiratory Rate 20 01/16/18 10:00 Blood Pressure 118/44 L 01/16/18 10:00 O2 Sat by Pulse Oximetry (%) 95 01/15/18 22:00 Eyes: Yes: PERRL HENT: Yes: Atraumatic Neck: Yes: Supple Cardiovascular: Yes: Regular Rate and Rhythm, S1, S2 Respiratory: Yes: CTA Bilaterally Gastrointestinal: Yes: Normal Bowel Sounds, Soft. No: Tenderness Edema: No Labs: CBC, BMP 01/16/18 06:30 01/16/18 06:30 INR, PTT INR 1.00 (0.83-1.09) 01/15/18 08:20 Problem List - Problems (1) Hip fracture Code(s): S72.009A - FRACTURE OF UNSP PART OF NECK OF UNSP FEMUR, INIT Qualifiers: Encounter type: initial encounter Fracture type: closed Laterality: left Qualified Code(s): S72.002A - Fracture of unspecified part of neck of left femur, initial encounter for closed fracture (2) Hyperlipidemia Code(s): E78.5 - HYPERLIPIDEMIA, UNSPECIFIED Qualifiers: Hyperlipidemia type: pure hypercholesterolemia Qualified Code(s): E78.00 - Pure hypercholesterolemia, unspecified; E78.0 - Pure hypercholesterolemia Assessment/Plan 1. Post-operative cardiovascular evaluation 2. Left Intertrochanteric fracture with avulsion of the lesser trochanter w/o ORIF 3. Hyperlipidemia 4. History of right TKR PLAN: 1. Post operative management. PT 2. Analgesia as needed, DVT prophylaxis Ulices Peacock MD
--- NOTE | 2018-01-16 15:20 | PN ---
Progress Note, Physician History of Present Illness: She feels well. she walked about 10 steps today. Pain well controlled. - Current Medication List Current Medications: Active Medications Acetaminophen (Tylenol -) 325 mg PO Q6H PRN PRN Reason: PAIN 1-5 Last Admin: 01/16/18 03:40 Dose: 325 mg Acetaminophen (Tylenol -) 650 mg PO Q6H PRN PRN Reason: PAIN 6-10 Calcium Carbonate/Cholecalciferol (Os-Víctor 500+D -) 1 tab PO BID [facility] Last Admin: 01/16/18 09:47 Dose: 1 tab Docusate Sodium (Colace -) 100 mg PO TID [facility] Last Admin: 01/16/18 15:17 Dose: 100 mg Enoxaparin Sodium (Lovenox -) 40 mg SQ DAILY [facility] Last Admin: 01/16/18 09:47 Dose: 40 mg Fentanyl (Sublimaze Injection -) 25 mcg IVPUSH [id number] PRN PRN Reason: PAIN-PACU ORDER X 4 DOSES ONLY Lactated Ringer's (Lactated Ringers Solution) 1,000 mls @ 125 mls/hr IV ASDIR [facility] Last Admin: 01/16/18 01:36 Dose: 125 mls/hr Ondansetron HCl (Zofran Injection) 4 mg IVPUSH Q6H PRN PRN Reason: NAUSEA AND/OR VOMITING Last Admin: 01/16/18 10:49 Dose: 4 mg Oxycodone HCl (Roxicodone -) 5 mg PO Q6H PRN PRN Reason: PAIN 1-5 Last Admin: 01/16/18 09:47 Dose: 5 mg Oxycodone HCl (Roxicodone -) 10 mg PO Q6H PRN PRN Reason: PAIN 6-10 - Objective Vital Signs: Vital Signs Temperature 98.5 F 01/16/18 10:00 Pulse Rate 90 01/16/18 10:00 Respiratory Rate 20 01/16/18 10:00 Blood Pressure 118/44 L 01/16/18 10:00 O2 Sat by Pulse Oximetry (%) 95 01/15/18 22:00 Constitutional: Yes: Well Nourished, No Distress, Calm Musculoskeletal: Yes: Other (Dressing CDI, Compartments soft. Smooth ROM of the hip. Calf soft, nontender. Neg hunter's sign. NVID.) Labs: CBC, BMP 01/16/18 06:30 01/16/18 06:30 INR, PTT INR 1.00 (0.83-1.09) 01/15/18 08:20 Assessment/Plan #1 POD #1 s/p Left hip ORIF -PT WBAT -Pain control -DVT prophalxis -follow up with Dr. Castaneda in ~2 weeks -Discharge planning
--- NOTE | 2018-01-16 16:01 | PN ---
Progress Note, Physician History of Present Illness: walked few steps in room - Current Medication List Current Medications: Active Medications Acetaminophen (Tylenol -) 325 mg PO Q6H PRN PRN Reason: PAIN 1-5 Last Admin: 01/16/18 03:40 Dose: 325 mg Acetaminophen (Tylenol -) 650 mg PO Q6H PRN PRN Reason: PAIN 6-10 Calcium Carbonate/Cholecalciferol (Os-Víctor 500+D -) 1 tab PO BID [facility] Last Admin: 01/16/18 09:47 Dose: 1 tab Docusate Sodium (Colace -) 100 mg PO TID [facility] Last Admin: 01/16/18 15:17 Dose: 100 mg Enoxaparin Sodium (Lovenox -) 40 mg SQ DAILY [facility] Last Admin: 01/16/18 09:47 Dose: 40 mg Fentanyl (Sublimaze Injection -) 25 mcg IVPUSH [id number] PRN PRN Reason: PAIN-PACU ORDER X 4 DOSES ONLY Lactated Ringer's (Lactated Ringers Solution) 1,000 mls @ 125 mls/hr IV ASDIR [facility] Last Admin: 01/16/18 01:36 Dose: 125 mls/hr Ondansetron HCl (Zofran Injection) 4 mg IVPUSH Q6H PRN PRN Reason: NAUSEA AND/OR VOMITING Last Admin: 01/16/18 10:49 Dose: 4 mg Oxycodone HCl (Roxicodone -) 5 mg PO Q6H PRN PRN Reason: PAIN 1-5 Last Admin: 01/16/18 09:47 Dose: 5 mg Oxycodone HCl (Roxicodone -) 10 mg PO Q6H PRN PRN Reason: PAIN 6-10 - Objective Vital Signs: Vital Signs Temperature 98.5 F 01/16/18 10:00 Pulse Rate 90 01/16/18 10:00 Respiratory Rate 20 01/16/18 10:00 Blood Pressure 118/44 L 01/16/18 10:00 O2 Sat by Pulse Oximetry (%) 95 01/15/18 22:00 HENT: Yes: Atraumatic Neck: Yes: Supple Cardiovascular: Yes: Regular Rate and Rhythm Respiratory: Yes: CTA Bilaterally Gastrointestinal: Yes: Normal Bowel Sounds Extremities: Yes: Other (left llex surgery site dressing in place some swelling of thigh around it) Neurological: Yes: Alert, Oriented Labs: CBC, BMP 01/16/18 06:30 01/16/18 06:30 INR, PTT INR 1.00 (0.83-1.09) 01/15/18 08:20 Problem List - Problems (1) Hip fracture Assessment/Plan: left hip fracture s/p surgery prn pain meds dvt ppx pt eval Code(s): S72.009A - FRACTURE OF UNSP PART OF NECK OF UNSP FEMUR, INIT Qualifiers: Encounter type: initial encounter Fracture type: closed Laterality: left Qualified Code(s): S72.002A - Fracture of unspecified part of neck of left femur, initial encounter for closed fracture (2) Hyperlipidemia Code(s): E78.5 - HYPERLIPIDEMIA, UNSPECIFIED Qualifiers: Hyperlipidemia type: pure hypercholesterolemia Qualified Code(s): E78.00 - Pure hypercholesterolemia, unspecified; E78.0 - Pure hypercholesterolemia
[2018-01-17] MEDS: oxyCODONE HCL 5 MG TABLET PO PRN (04:30)
[2018-01-17 06:45] LABS: BASO % 0.3 % (0-2.0); EOS % 0.9 % (0-4.5); HEMATOCRIT 32.8 % (32.4-45.2); HEMOGLOBIN 10.7 GM/dL (10.7-15.3); LYMPH % 18.8 % (8-40); MCH 30.6 pg (25.7-33.7); MCHC 32.7 g/dl (32.0-36.0); MEAN CELL VOLUME 93.6 fl (80-96); MONO % 9.1 % (3.8-10.2); NEUT % 70.9 % (42.8-82.8); PLATELET COUNT 164 K/MM3 (134-434); RBC 3.51 M/mm3 (3.60-5.2)
[2018-01-17] MEDS: DOCUSATE SODIUM 100 MG CAPSULE (FP) PO SCH ×3 (06:55→21:37)
[2018-01-17 08:07] LABS: ALBUMIN 2.8 g/dl (3.4-5.0); ALK PHOS 93 U/L (45-117); ANION GAP 8 MMOL/L (8-16); BILIRUBIN,TOTAL 0.6 mg/dL (0.2-1); BLOOD UREA NITROGEN 22 mg/dL (7-18); CALCIUM 8.4 mg/dL (8.5-10.1); CHLORIDE 106 mmol/L (98-107); CO2 27 mmol/L (21-32); CREATININE 0.6 mg/dL (0.55-1.3); GLUCOSE,RANDOM 95 mg/dL (74-106); SGOT/AST 28 U/L (15-37); SGPT/ALT 20 U/L (13-61); SODIUM 141 mmol/L (136-145); TOT PROT 5.7 g/dl (6.4-8.2)
[2018-01-17] MEDS: CALCIUM 500MG/VIT-D 200 UNITS COMBO TABLET (FP) PO SCH ×2 (09:49→21:37)
[2018-01-17] MEDS: ENOXAPARIN NA (PORCINE) 40 MG/0.4 ML DISP.SYRIN SQ SCH (09:49)
[2018-01-17] MEDS: ACETAMINOPHEN 325 MG TABLET (FP) PO PRN ×2 (11:24→16:46)
--- NOTE | 2018-01-17 14:45 | PN ---
Progress Note, Physician History of Present Illness: Tolerating ambulation post left hip repair, denies chest pain or dyspnea. - Current Medication List Current Medications: Active Medications Acetaminophen (Tylenol -) 325 mg PO Q6H PRN PRN Reason: PAIN 1-5 Last Admin: 01/16/18 03:40 Dose: 325 mg Acetaminophen (Tylenol -) 650 mg PO Q6H PRN PRN Reason: PAIN 6-10 Last Admin: 01/17/18 11:24 Dose: 650 mg Calcium Carbonate/Cholecalciferol (Os-Víctor 500+D -) 1 tab PO BID [facility] Last Admin: 01/17/18 09:49 Dose: 1 tab Docusate Sodium (Colace -) 100 mg PO TID [facility] Last Admin: 01/17/18 13:47 Dose: 100 mg Enoxaparin Sodium (Lovenox -) 40 mg SQ DAILY [facility] Last Admin: 01/17/18 09:49 Dose: 40 mg Fentanyl (Sublimaze Injection -) 25 mcg IVPUSH [id number] PRN PRN Reason: PAIN-PACU ORDER X 4 DOSES ONLY Lactated Ringer's (Lactated Ringers Solution) 1,000 mls @ 125 mls/hr IV ASDIR [facility] Last Admin: 01/16/18 18:26 Dose: Not Given Ondansetron HCl (Zofran Injection) 4 mg IVPUSH Q6H PRN PRN Reason: NAUSEA AND/OR VOMITING Last Admin: 01/16/18 10:49 Dose: 4 mg Oxycodone HCl (Roxicodone -) 5 mg PO Q6H PRN PRN Reason: PAIN 1-5 Last Admin: 01/17/18 04:30 Dose: 5 mg Oxycodone HCl (Roxicodone -) 10 mg PO Q6H PRN PRN Reason: PAIN 6-10 - Objective Vital Signs: Vital Signs Temperature 98.5 F 01/17/18 10:41 Pulse Rate 104 H 01/17/18 10:41 Respiratory Rate 20 01/17/18 10:41 Blood Pressure 114/62 01/17/18 10:41 O2 Sat by Pulse Oximetry (%) 95 01/15/18 22:00 Constitutional: Yes: No Distress, Calm, Thin Neck: Yes: Supple Cardiovascular: Yes: Regular Rate and Rhythm Respiratory: Yes: Regular, Diminished Gastrointestinal: Yes: Normal Bowel Sounds, Soft Edema: No Labs: CBC, BMP 01/17/18 06:00 01/17/18 06:00 INR, PTT INR 1.00 (0.83-1.09) 01/15/18 08:20 Problem List - Problems (1) Hyperlipidemia Code(s): E78.5 - HYPERLIPIDEMIA, UNSPECIFIED Qualifiers: Hyperlipidemia type: pure hypercholesterolemia Qualified Code(s): E78.00 - Pure hypercholesterolemia, unspecified; E78.0 - Pure hypercholesterolemia (2) Hip fracture Code(s): S72.009A - FRACTURE OF UNSP PART OF NECK OF UNSP FEMUR, INIT Qualifiers: Encounter type: subsequent encounter Fracture type: closed Laterality: left Fracture healing: with routine healing Qualified Code(s): S72.002D - Fracture of unspecified part of neck of left femur, subsequent encounter for closed fracture with routine healing Assessment/Plan 1. Post-operative cardiovascular evaluation 2. Left Intertrochanteric fracture with avulsion of the lesser trochanter POD#2 ORIF 3. Hyperlipidemia 4. History of right TKR PLAN: 1. Post operative management. PT 2. Analgesia as needed, DVT prophylaxis 3. WBAT, PT as tolerated->rehab
--- NOTE | 2018-01-17 15:32 | PN ---
Progress Note, Physician History of Present Illness: doing well walked to the bathroom - Current Medication List Current Medications: Active Medications Acetaminophen (Tylenol -) 325 mg PO Q6H PRN PRN Reason: PAIN 1-5 Last Admin: 01/16/18 03:40 Dose: 325 mg Acetaminophen (Tylenol -) 650 mg PO Q6H PRN PRN Reason: PAIN 6-10 Last Admin: 01/17/18 11:24 Dose: 650 mg Calcium Carbonate/Cholecalciferol (Os-Víctor 500+D -) 1 tab PO BID [facility] Last Admin: 01/17/18 09:49 Dose: 1 tab Docusate Sodium (Colace -) 100 mg PO TID [facility] Last Admin: 01/17/18 13:47 Dose: 100 mg Enoxaparin Sodium (Lovenox -) 40 mg SQ DAILY [facility] Last Admin: 01/17/18 09:49 Dose: 40 mg Fentanyl (Sublimaze Injection -) 25 mcg IVPUSH [id number] PRN PRN Reason: PAIN-PACU ORDER X 4 DOSES ONLY Lactated Ringer's (Lactated Ringers Solution) 1,000 mls @ 125 mls/hr IV ASDIR [facility] Last Admin: 01/16/18 18:26 Dose: Not Given Ondansetron HCl (Zofran Injection) 4 mg IVPUSH Q6H PRN PRN Reason: NAUSEA AND/OR VOMITING Last Admin: 01/16/18 10:49 Dose: 4 mg Oxycodone HCl (Roxicodone -) 5 mg PO Q6H PRN PRN Reason: PAIN 1-5 Last Admin: 01/17/18 04:30 Dose: 5 mg Oxycodone HCl (Roxicodone -) 10 mg PO Q6H PRN PRN Reason: PAIN 6-10 - Objective Vital Signs: Vital Signs Temperature 97.7 F 01/17/18 15:29 Pulse Rate 87 01/17/18 15:29 Respiratory Rate 20 01/17/18 10:41 Blood Pressure 152/74 01/17/18 15:29 O2 Sat by Pulse Oximetry (%) 95 01/15/18 22:00 Constitutional: Yes: No Distress HENT: Yes: Atraumatic Neck: Yes: Supple Cardiovascular: Yes: Regular Rate and Rhythm Respiratory: Yes: CTA Bilaterally Gastrointestinal: Yes: Normal Bowel Sounds Extremities: Yes: Other (left thigh surgery site in dressing area around mild swelling) Neurological: Yes: Alert, Oriented ...Motor Strength: WNL Labs: CBC, BMP 01/17/18 06:00 01/17/18 06:00 INR, PTT INR 1.00 (0.83-1.09) 01/15/18 08:20 Problem List - Problems (1) Hip fracture Assessment/Plan: left hip fracture s/p surgery prn pain meds dvt ppx pt eval for rehab Code(s): S72.009A - FRACTURE OF UNSP PART OF NECK OF UNSP FEMUR, INIT Qualifiers: Encounter type: subsequent encounter Fracture type: closed Laterality: left Fracture healing: with routine healing Qualified Code(s): S72.002D - Fracture of unspecified part of neck of left femur, subsequent encounter for closed fracture with routine healing (2) Hyperlipidemia Code(s): E78.5 - HYPERLIPIDEMIA, UNSPECIFIED Qualifiers: Hyperlipidemia type: pure hypercholesterolemia Qualified Code(s): E78.00 - Pure hypercholesterolemia, unspecified; E78.0 - Pure hypercholesterolemia
[2018-01-18] MEDS: oxyCODONE HCL 5 MG TABLET PO PRN (00:26)
[2018-01-18] MEDS: DOCUSATE SODIUM 100 MG CAPSULE (FP) PO SCH ×2 (05:34→14:39)
[2018-01-18] MEDS: CALCIUM 500MG/VIT-D 200 UNITS COMBO TABLET (FP) PO SCH (09:25)
[2018-01-18] MEDS: ENOXAPARIN NA (PORCINE) 40 MG/0.4 ML DISP.SYRIN SQ SCH (09:25)
--- NOTE | 2018-01-18 10:51 | PN ---
Progress Note, Physician History of Present Illness: Tolerating ambulation post left hip repair, denies chest pain or dyspnea. - Current Medication List Current Medications: Active Medications Acetaminophen (Tylenol -) 325 mg PO Q6H PRN PRN Reason: PAIN 1-5 Last Admin: 01/16/18 03:40 Dose: 325 mg Acetaminophen (Tylenol -) 650 mg PO Q6H PRN PRN Reason: PAIN 6-10 Last Admin: 01/17/18 16:46 Dose: 650 mg Calcium Carbonate/Cholecalciferol (Os-Víctor 500+D -) 1 tab PO BID [facility] Last Admin: 01/18/18 09:25 Dose: 1 tab Docusate Sodium (Colace -) 100 mg PO TID [facility] Last Admin: 01/18/18 05:34 Dose: 100 mg Enoxaparin Sodium (Lovenox -) 40 mg SQ DAILY [facility] Last Admin: 01/18/18 09:25 Dose: 40 mg Fentanyl (Sublimaze Injection -) 25 mcg IVPUSH [id number] PRN PRN Reason: PAIN-PACU ORDER X 4 DOSES ONLY Lactated Ringer's (Lactated Ringers Solution) 1,000 mls @ 125 mls/hr IV ASDIR [facility] Last Admin: 01/16/18 18:26 Dose: Not Given Ondansetron HCl (Zofran Injection) 4 mg IVPUSH Q6H PRN PRN Reason: NAUSEA AND/OR VOMITING Last Admin: 01/16/18 10:49 Dose: 4 mg Oxycodone HCl (Roxicodone -) 5 mg PO Q6H PRN PRN Reason: PAIN 1-5 Last Admin: 01/18/18 00:26 Dose: 5 mg Oxycodone HCl (Roxicodone -) 10 mg PO Q6H PRN PRN Reason: PAIN 6-10 - Objective Vital Signs: Vital Signs Temperature 98.3 F 01/18/18 08:49 Pulse Rate 102 H 01/18/18 08:49 Respiratory Rate 20 01/18/18 08:49 Blood Pressure 126/69 01/18/18 08:49 O2 Sat by Pulse Oximetry (%) 95 01/15/18 22:00 Constitutional: Yes: No Distress, Calm Neck: Yes: Supple Cardiovascular: Yes: Regular Rate and Rhythm Respiratory: Yes: Regular, CTA Bilaterally Gastrointestinal: Yes: Normal Bowel Sounds, Soft Edema: No Labs: CBC, BMP 01/17/18 06:00 01/17/18 06:00 INR, PTT INR 1.00 (0.83-1.09) 01/15/18 08:20 Problem List - Problems (1) Hyperlipidemia Code(s): E78.5 - HYPERLIPIDEMIA, UNSPECIFIED Qualifiers: Hyperlipidemia type: pure hypercholesterolemia Qualified Code(s): E78.00 - Pure hypercholesterolemia, unspecified; E78.0 - Pure hypercholesterolemia (2) Hip fracture Code(s): S72.009A - FRACTURE OF UNSP PART OF NECK OF UNSP FEMUR, INIT Qualifiers: Encounter type: subsequent encounter Fracture type: closed Laterality: left Fracture healing: with routine healing Qualified Code(s): S72.002D - Fracture of unspecified part of neck of left femur, subsequent encounter for closed fracture with routine healing Assessment/Plan 1. Post-operative cardiovascular evaluation 2. Left Intertrochanteric fracture with avulsion of the lesser trochanter POD#3 ORIF 3. Hyperlipidemia 4. History of right TKR PLAN: 1. Post operative management. PT 2. Analgesia as needed, DVT prophylaxis 3. WBAT, PT as tolerated->rehab
[2018-01-18 14:53] VITALS: BP 129/65; PULSE 100; TEMP 99
--- NOTE | 2018-01-18 16:57 | DS ---
Physical Examination Vital Signs: Vital Signs Temperature 99 F 01/18/18 14:52 Pulse Rate 100 H 01/18/18 14:52 Respiratory Rate 16 01/18/18 14:52 Blood Pressure 129/65 01/18/18 14:52 O2 Sat by Pulse Oximetry (%) 95 01/15/18 22:00 Constitutional: Yes: No Distress HENT: Yes: Atraumatic Neck: Yes: Supple Cardiovascular: Yes: Regular Rate and Rhythm Respiratory: Yes: CTA Bilaterally Gastrointestinal: Yes: Normal Bowel Sounds Extremities: Yes: Other (surgery site clean) Edema: No Peripheral Pulses WNL: Yes Neurological: Yes: Alert, Oriented Labs: CBC, BMP 01/17/18 06:00 01/17/18 06:00 Discharge Summary Reason For Visit: FRACTURE OF HIP Current Active Problems Displaced intertrochanteric fracture of left femur, initial encounter for closed fracture (Acute) Hip fracture (Acute) Hyperlipidemia (Acute) Pre-operative cardiovascular examination (Acute) Condition: Guarded - Instructions Referrals: Erum Mckeon [Primary Care Provider] - Jadiel Herring MD [Staff Physician] - - Home Medications Comprehensive Discharge Medication List: Ambulatory Orders Pravastatin Sodium [Pravachol -] 20 mg PO DAILY 10/26/17 Enoxaparin [Lovenox -] 40 mg SQ DAILY disp.syrin 01/17/18 [facility]
[2018-01-18] MEDS: ACETAMINOPHEN 325 MG TABLET (FP) PO PRN (17:21)
--- NOTE | 2018-01-27 13:47 | OP ---
DATE OF OPERATION: 01/15/2018 PREOPERATIVE DIAGNOSIS: Left intertrochanteric hip fracture. POSTOPERATIVE DIAGNOSIS: Left intertrochanteric hip fracture. PROCEDURE: Left hip intramedullary nail. SURGEON: Jitendra Castaneda M.D. ANESTHESIA: General. POSTOPERATIVE CONDITION: S\table. COMPLICATIONS: None. IMPLANTS: Rik gamma3 125-degree short nail. 100 mm proximal lag screw. 37.5 mm distal locking screw. INDICATIONS: This is a pleasant 72-year-old female who suffered a fall down the stairs. She was found to have a displaced intertrochanteric hip fracture. Treatment options, including non-operative, versus operative, management were reviewed. Operative risks were reviewed in detail, including bleeding, infection, neurovascular injury, need for further surgery, postoperative pain and stiffness, nonunion, malunion, hardware failure or cutout, limb length discrepancy or rotational deformity. We discussed medical risks, such as heart attack, stroke, DVT, PE and . I addressed the use of perioperative antibiotic and DVT prophylaxis. I reviewed the postoperative rehabilitation protocol. I addressed all the patient's questions and concerns. She voiced understanding and elected to proceed. PROCEDURE: The patient was brought to the operating room where general anesthesia was administered. She was placed on the fracture table, careful to pad all bony prominences. The left lower extremity was then placed into position of adduction, traction and internal rotation. Patient was then prepped and draped in the usual sterile fashion. A preoperative was given and the usual timeout procedure was performed. The incision was now planned out over the greater trochanter. This was made through the skin and subcutaneous tissue. A guidewire was then inserted onto the tip of the greater trochanter. The guidewire was then advanced with malleting into the femoral canal. Guidewire placement was confirmed fluoroscopically in 2 planes. The opening reamer was now inserted, using a soft tissue sleeve to avoid any damage to the soft tissues. The opening reamer was drilled down to the level of the lesser trochanter. The guidewire and the reamer were now removed. The gamma nail was now inserted. It should be noted that prior to inserting the guidewire, fluoroscopy had been used to confirm that the reduction of the fracture was satisfactory. The nail was now inserted under fluoroscopic guidance. A 2nd incision was made more distally to allow passage of the trocar down to the level of the lateral femoral cortex. Guidewire was now drilled down the center of the femoral neck into the center of the femoral head. Guidewire placement was confirmed fluoroscopically in 2 planes. The guidewire was now measured. It was then over-reamed to a depth of 100 mm. The proximal lag screw was now inserted. Lag screw placement was confirmed fluoroscopically in 2 planes. The set screw was now inserted and then backed off a quarter turn to allow for compression. The trocar was now removed. A 2nd incision was made more distally to allow for placement of the distal locking trocar. This was inserted in a similar fashion. The distal locking screw was then drilled in static alignment. A 37.5 mm screw was chosen and inserted. At this point, the entire construct was examined fluoroscopically. Both fracture reduction and hardware placement were satisfactory. The jig was removed. The wounds were copiously irrigated. The deep tissue was approximated using 2-0 Vicryl. The subcutaneous tissue was approximated using 2-0 Vicryl. The skin was closed using 3-0 nylon. Sterile dressings were placed. The patient was extubated and transferred to the recovery room in stable condition. Suleman PEDRO/[id number]
== END 2018-01-18 19:46 | disposition home or self-care (01) | DRG 482 ==
LOC: JER 07:34 → JERBED 10:43 → J6S 12:29
PROVIDERS: ADMIT Internal Medicine; ATTEND Internal Medicine
PROC: 0QS706Z Reposition Left Upper Femur with Intramedullary Internal Fixation Device, Open Approach (ICD-10-PCS; principal; 2018-01-15 13:30)
DX: S72.142A Displaced intertrochanteric fracture of left femur, initial encounter for closed fracture (principal); S72.122A Displaced fracture of lesser trochanter of left femur, initial encounter for closed fracture; E78.5 Hyperlipidemia, unspecified; Z96.651 Presence of right artificial knee joint; W17.89XA Other fall from one level to another, initial encounter; Y92.098 Other place in other non-institutional residence as the place of occurrence of the external cause
CPT/HCPCS: 36415; 71046-TC-FY; 73523-TC-FY; 76000-TC-FY; 80053; 81003; 81015; 85025; 85610; 86850; 86900; 86901; 90688; 93005; 93010; 94760; 97116-GP; 97162-GP; 99282-25; G0008

== ENCOUNTER 2023-07-14 12:24 | Emergency (ER) | payer OTHER ==
[2023-07-14 14:48] VITALS: BP 138/70; PULSE 82; RESP 18; TEMP 98.9; BMI 25.2
== END 2023-07-14 16:09 | disposition home or self-care (01) ==
LOC: FER 12:24
DX: S60.211A Contusion of right wrist, initial encounter (principal); W19.XXXA Unspecified fall, initial encounter
CPT/HCPCS: 70450-TC; 73110-TC-RT-FY; 73130-TC-RT-FY; 99284-25